=== PATIENT | male | born 1940 | race African-American/Black ===

== ENCOUNTER 2020-03-05 01:04 | Emergency (ER) | payer MEDICARE, SELFPAY ==
--- NOTE | ~2020-03-05 | XR_ITS ---
XR forearm RT 2V, XR elbow RT min 3V 03/05/2020 01:57 Indication: Right arm pain after fall Procedure: 3 views right forearm and 3 views right elbow Comparison: No prior studies for comparison. Findings: No fracture, subluxation or dislocation. No significant joint effusion. No radiopaque forei gn bodies. No focal soft tissue abnormality. Impression: 1: No acute fracture. Reviewed, dictated and finalized at location A. Impression: 1: No acute fracture. Impression: 1: No acute fracture.
--- NOTE | ~2020-03-05 | XR_ITS ---
XR shoulder RT min 2V, XR humerus RT 03/05/2020 01:57 INDICATION: Right arm pain after fall PROCEDURE: 4 views right shoulder and 2 views right humerus COMPARISON: No prior studies for comparison. FINDINGS: Fracture, dislocation or subluxation is not identified. There is a port catheter, tip near the cavoatrial junction. The soft tissues appear within normal limits. No foreign bodies are identif ied. IMPRESSION: 1: NO ACUTE BONE OR JOINT ABNORMALITY IDENTIFIED. Reviewed, dictated and finalized at location A. IMPRESSION: 1: NO ACUTE BONE OR JOINT ABNORMALITY IDENTIFIED.
--- NOTE | 2020-03-05 01:05 | ED.FALL ---
HPI - Fall General Chief Complaint: Extremity Injury, Upper Stated Complaint: r arm pain Time Seen by Provider: 03/05/20 01:05 Source: patient Mode of arrival: EMS Limitations: no limitations History of Present Illness HPI Narrative: Patient is a 79-year-old male who presented for evaluation of ground-level fall. Patient states he awakened this morning to use the restroom, ambulated and then lost his footing, tripping over some carpet. He states that he fell onto his right side, hitting a small cabinet. He denies any head trauma or loss of consciousness. He denies any headache, vision changes, shoulder pain. He reports he actually feels quite well at the moment. No prodromal symptoms prior to the fall such as chest pain, palpitations or shortness of breath. No numbness in his arms or lower extremities. Patient reports soreness in his right forearm. He denies severe wrist pain. He has full range of motion at the elbow, he denies weakness. Pt is taking Eliquis. Related Data Home Medications Medication Instructions Recorded Confirmed Artificial Tears (cmc) 03/05/20 apixaban [Eliquis] 5 mg PO BID 03/05/20 03/05/20 bisacodyl 10 mg TX DAILY 03/05/20 03/05/20 dexamethasone 4 mg PO DAILY 03/05/20 03/05/20 furosemide 40 mg PO DAILY 03/05/20 03/05/20 metoprolol succinate 200 mg PO DAILY 03/05/20 03/05/20 nitroglycerin 0.4 mg SUBLINGUAL Q5-15M PRN 03/05/20 03/05/20 omeprazole 20 mg PO DAILY 03/05/20 03/05/20 prochlorperazine maleate 10 mg PO Q6H PRN 03/05/20 03/05/20 rosuvastatin 40 mg PO DAILY 03/05/20 03/05/20 sennosides [Senna Lax] 8.6 mg PO DAILY PRN 03/05/20 03/05/20 trazodone 50 mg PO HS 03/05/20 03/05/20 Allergies Allergy/AdvReac Type Severity Reaction Status Date / Time atenolol AdvReac Muscle Pain Verified 03/05/20 01:23 atorvastatin AdvReac Cough Verified 03/05/20 01:23 Review of Systems Review of Systems: Narrative: CONSTITUTIONAL: Denies fever CARDIOVASCULAR: Denies chest pain RESPIRATORY: Denies cough or dyspnea. GASTROINTESTINAL: Denies abdominal pain SKIN: Denies rash MUSCULOSKELETAL: Denies back pain, reports right arm pain NEUROLOGIC: Denies headache PMFSH Past Medical History Medical History CAD (coronary artery disease) HTN (hypertension) Myocardial infarction Prostate CA Chemotherapy Renal disease Surgical History Surgical History H/O cardiac catheterization H/O prostatectomy Stented coronary artery x2 Social History Social History Smoking status: Never smoker Gender identity (if verbalized by the patient): Male Exam Narrative: Exam Narrative: Nursing note and vitals reviewed. CONSTITUTIONAL: The patient appears well-developed and well-nourished. No distress. HEAD: Normocephalic and atraumatic. EYES: PERRL, EOMI, normal conjunctiva, anicteric EARS: External ears clear bilaterally, no hemotympanum MOUTH: OP clear, no erythema, exudates NECK: midline trachea, supple, FROM. No midline cervical spinal tenderness. CARDIOVASCULAR: Normal rate, regular rhythm, normal heart sounds and intact distal pulses. No murmurs, rubs, gallops. PULMONARY: Effort normal and breath sounds normal. No respiratory distress. The patient has no wheezes, rales, ronchi. No chest wall tenderness, crepitus or ecchymoses. ABDOMINAL: Soft. Nontender, nondistended. No palpable masses EXTREMITIES:: moving all extremities symmetrically. -RUE: No deformity. Normal ROM at shoulder, elbow, wrist, and hand. Hematoma to the right forearm. Sensation intact M/U/R. Pulse 2+. -LUE: No deformity. Normal ROM at shoulder, elbow, wrist, and hand., Sensation intact M/U/R. Pulse 2+ -RLE: No deformity. Normal ROM at hip, knee, ankle. Sensation intact distally. -LLE: No deformity. Normal ROM at hip, knee, ankle. Sensation intact distally. NEUROLOGY: The patient is
[2020-03-05 01:14] VITALS: BP 152/101; PULSE 100; RESP 16; TEMP 36.4; O2SAT 99
[2020-03-05 02:03] VITALS: BP 146/95; PULSE 67; RESP 18; O2SAT 99
[2020-03-05 02:35] VITALS: BP 134/91; PULSE 86; RESP 18; O2SAT 95
== END 2020-03-05 02:37 | disposition home or self-care (01) ==
PROVIDERS: Emergency Provider Emergency Medicine
DX: S50.11XA Contusion of right forearm, initial encounter (principal); I25.10 Atherosclerotic heart disease of native coronary artery without angina pectoris; I10 Essential (primary) hypertension; I25.2 Old myocardial infarction; N28.9 Disorder of kidney and ureter, unspecified; Z85.46 Personal history of malignant neoplasm of prostate; Z92.21 Personal history of antineoplastic chemotherapy; Z79.01 Long term (current) use of anticoagulants; Z90.79 Acquired absence of other genital organ(s); Z95.5 Presence of coronary angioplasty implant and graft; W01.198A Fall on same level from slipping, tripping and stumbling with subsequent striking against other object, initial encounter
CPT/HCPCS: 73030; 73060; 73080; 73090; 99283; 99284